=== PATIENT | female | born 1965 | race Two or more races ===

== ENCOUNTER 2025-05-31 19:20 | Emergency (ER) | payer BC ==
[~2025-05-31] VITALS: Ht 167.6 cm; Wt 108.9 kg
[2025-05-31] MEDS ORDERED: LOSARTAN POTASS25 MG (19:43)
[2025-05-31] MEDS ORDERED: SYNTHROID50 MCG (19:43)
== END 2025-05-31 21:51 | disposition home or self-care (01) ==
LOC: ER 19:20
DX: I16.9 Hypertensive crisis, unspecified (principal); I10 Essential (primary) hypertension